=== PATIENT | female | born 1960 | race Caucasian/White ===

== ENCOUNTER 2017-03-07 06:20 | Inpatient (IN) | payer BC ==
--- NOTE | ~2017-03-07 | EGD ---
EGD REPORT [facility] [address] 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 Estimated blood loss: None. Procedure: Pre-Anesthesia Assessment: - After reviewing the risks and benefits, the patient was deemed in satisfactory condition to undergo the procedure. - Prior to the procedure, a History and Physical was performed, and patient medications and allergies were reviewed. The patient's tolerance of previous anesthesia was also reviewed. The risks and benefits of the procedure and the sedation options and risks were discussed with the patient. All questions were answered, and informed consent was obtained. Prior Anticoagulants: The patient has taken IV heparin which was discontinued 6 hours prior to procedure. ASA Grade Assessment: IV - A patient with severe systemic disease that is a constant threat to life. After reviewing the risks and benefits, the patient was deemed in satisfactory condition to undergo the procedure. After obtaining informed consent, the endoscope was passed under direct vision. Throughout the procedure, the patient's blood pressure, pulse, and oxygen saturations were monitored continuously. The GIF [id number] was introduced through the mouth, and advanced to the third part of duodenum. The upper GI endoscopy was accomplished without difficulty. The patient tolerated the procedure well. Findings: A benign-appearing, intrinsic moderate (circumferential scarring or stenosis; an endoscope may pass) stenosis was found 25 cm from the incisors and was traversed. 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 A TTS dilator was passed through the scope. Dilation with an 18-19-20 mm balloon (to a maximum balloon size of 20 mm) dilator was performed. Estimated blood loss: EGD REPORT [address] [place]. [address] NAME: CATALINA CUENCA : [birth year] STATUS : ADM IN [facility]#: [id number] AGE: 57 ADM/REG DATE : 03/07/17 MR#: [id number] REPORT SERV DATE: 03/09/17 DICTATED BY: UGO DENNIS DATE: 03/09/17 REPORT STATUS : Draft TRANSCRIBED BY: [employer] DATE: 03/09/17 none. There was no evidence of injury after dilation. Savary-Winston Grade II (multiple lesions and folds, noncircumferential, with or without confluence) esophagitis with no bleeding was found. The Z-line was irregular. Biopsies were taken with a cold forceps for histology. Estimated blood loss: none. Diffuse moderate inflammation characterized by erythema and granularity was found in the gastric antrum. Biopsies were taken with a cold forceps for histology. Estimated blood loss: none. The gastroesophageal junction (on retroflexion) was normal. The examined duodenum was normal. Impression: - Benign-appearing esophageal stricture. Dilated to 20 mm. - Savary-Winston Grade II reflux esophagitis. - Z-line irregular,. Biopsied. - Gastritis. Biopsied. - Normal gastroesophageal junction. - Normal examined duodenum. Biopsied. - History of surgery for TEF/EA. Recommendation: - [facility] patient [facility] for [facility] care. - Soft diet today. - Continue PPI therapy. - Can resume IV heparin. - Would plan repeat endoscopic examination and dilation in 2-3 months after recover from open heart surgery. Can also do an elective screening colonoscopy at that time. Procedure Code(s): --- Professional --- 40162, Esophagogastroduodenoscopy, flexible, transoral; with transendoscopic balloon dilation of esophagus (less than 30 mm diameter) 95052, Esophagogastroduodenoscopy, flexible, transoral; with biopsy, single or multiple Diagnosis Code(s): --- Professional --- K22.2, Esophageal obstruction K21.0, Gastro-esophageal reflux disease with esophagitis K22.8, Other specified diseases of esophagus K29.70, Gastritis, unspecified, without bleeding R13.10, Dysphagia, unspecified R12, Heartburn CPT copyright 2013 [employer]. All rights reserved. The codes documented in this report are preliminary and upon bank manager review may EGD REPORT [facility] [address] [address] NAME: CATALINA CUENCA : [birth year] STATUS : ADM IN [facility]#: [id number] AGE: 57 ADM/REG DATE : 03/07/17 MR#: [id number] REPORT SERV DATE: 03/09/17 DICTATED BY: UGO DENNIS DATE: 03/09/17 REPORT STATUS : Draft TRANSCRIBED BY: [employer] DATE: 03/09/17 be revised to meet current compliance requirements. UGO DENNIS MD 03/09/2017 8:02 AM This report has been signed electronically. Number of Addenda: 0 Note Initiated On: 03/09/2017 6:51 AM Scope Withdrawal Time 0 hours 0 minutes 0 seconds [address] [address]
--- NOTE | ~2017-03-07 | DS ---
Discharge Summary [facility] [address] [place]. [address] NAME: SHANTAL VEGA : 62 STATUS : DIS IN PAT#: [id number] AGE: 57 ADM/REG DATE : 03/07/17 MR#: [id number] REPORT SERV DATE: 03/25/17 DICTATED BY: JOI ZAMORA DATE: 03/24/17 REPORT STATUS : Draft TRANSCRIBED BY: NARCISA DATE: 03/24/17 Data Collection from hospitalization DISCHARGE DIAGNOSES: 1. Aortic valve stenosis. 2. Coronary artery disease. 3. Hyperlipidemia. 4. Diabetes mellitus. 5. Sleep apnea. 6. Scoliosis. 7. Gastroesophageal reflux disease. 8. Psoriasis. 9. Tobacco use. CONSULTATIONS: Dr. Joon Schulz, Dr. Declan Barnett. PROCEDURES PERFORMED: 1. Upper GI endoscopy, 03/09/2017. 2. Left heart catheterization, right heart catheterization, selective coronary angiography, left ventriculography, thoracic aortography, 03/07/2017. 3. Urgent coronary artery bypass grafting x3 with MCNAIR to the LAD, reverse saphenous vein graft placed to the first diagonal, reverse saphenous vein graft placed to the second diagonal, aortic valve replacement using a 25 mm pericardial valve (Trifecta), endoscopic vein harvest of the saphenous vein from the right thigh, 03/10/2017. 4. CT scan of the chest without contrast, 03/08/2017. PATHOLOGY: Aortic valve tissue was marked thickening and extensive calcifications, inflammatory vegetations not present. Gastric antrum biopsy-minimal chronic gastritis, negative for intestinal metaplasia or dysplasia. Negative for H pylori by routine H and E stain. 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 DISCHARGE MEDICATIONS: Cordarone 200 mg twice a day, vitamin C 1000 mg twice a day, aspirin 81 mg daily, Lipitor 40 mg at bedtime, stool softener 240 mg daily, Lopressor 12.5 mg twice a day, Aleve 220 mg daily as needed, Senokot two tablets twice a day, Coumadin 2.5 mg daily, Orazinc 220 mg daily. CONDITION AT DISCHARGE: Stable. DISPOSITION: The patient was discharged home on an 1800-calorie cardiac/diabetic diet with activities as instructed. She would follow up with Paulino Sandoval, 05/18/2017. She would follow up with Dr. Joi Zamora, 04/06/2017 and 03/17/2013. HOSPITAL COURSE: This is a 57-year-old smoker, who has borderline diabetes with recent progressive dyspnea on exertion and chest tightness. She had reported breathlessness, walking up and down stairs or even ambulating on level ground at 25-50 feet. She has a strong family history of coronary artery disease in her father, mother, and brother. She denied any symptoms of paroxysmal nocturnal dyspnea, syncope or near syncope, overt chest Discharge [id number] [place]. [address] NAME: SHANTAL VEGA : 62 STATUS : DIS IN PAT#: [id number] AGE: 57 ADM/REG DATE : 03/07/17 MR#: [id number] REPORT SERV DATE: 03/25/17 DICTATED BY: JOI ZAMORA DATE: 03/24/17 REPORT STATUS : Draft TRANSCRIBED BY: NARCISA DATE: 03/24/17 pain, nausea, or vomiting. She denied any night sweats, fevers, or chills. When she has chest discomfort, she does not have any radiation of the discomfort. She knows that she has had a murmur for least 10 years. She recently saw her primary care provider and had an echocardiogram, which revealed severe aortic stenosis, severe aortic regurgitation with peak aortic valve gradient of 68 mmHg. There was also noted mild mitral regurgitation and trace tricuspid regurgitation with preserved left ventricular function and mild dilation of the ascending aorta. It was felt that she would need to undergo a coronary arteriogram. She was admitted to the hospital at this time for further evaluation and treatment. Upon admission, she was taken to the cardiac director labor standards, where she underwent the above- mentioned procedure. She tolerated this well and there were no complications. Following this, she was seen by Dr. Joon Schulz. The arteriogram demonstrated a proximal left anterior descending coronary artery stenosis of 90% and had an EKG that showed sinus rhythm with ST-T wave changes in the anterolateral leads. It was felt that the patient would need to undergo a coronary artery bypass grafting during this admission. The following day, she was seen by Dr. Declan Barnett. He had been asked to see the patient for evaluation of reflux and dysphagia. 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 She was not sure if she had associated esophageal atresia or not, but she has had chronic esophageal symptoms since then. She has had reflux for which she said had not been too troublesome lately. She had taken Zantac, but only intermittently. She had also had an esophageal stricture, which required multiple dilations in the past. She said that the last of this was several years ago. Recently, she had been having some chest pain. There were plans for a coronary artery bypass graft procedure and aortic valve replacement to be performed. She reported increased dysphagia over the past couple of months. This would occur with both liquid and solid foods. She had not lost any weight. She denied any significant heartburn. She had been eating a solid diet here without too much difficulty. A CT scan was performed without contrast and showed some dilation of the esophagus with a little bit of fluid and some gallbladder sludge. IV Protonix was started. It was felt that she would probably benefit from an endoscopic examination and dilation. On the , the patient was taken to the endoscopic suite by Dr. Declan Barnett and she underwent upper GI endoscopy. The patient had a benign-appearing esophageal stricture, dilated to 20 mm. There was a Savary-Winston grade 2 reflux esophagitis. There was an irregular Z-line, which was biopsied. There was gastritis, which was biopsied. There was a normal gastroesophageal junction. There was a normal examined duodenum that was biopsied. Proton pump inhibitor therapy was continued. We would resume IV heparin. Plans are being made to proceed with coronary artery bypass grafting. On 03/10/2017, she was taken to the operating room by Dr. Joon Schulz, where she underwent the above-mentioned procedure. She tolerated this well and there were no complications. On postop day one, she had been extubated. She was alert. Routine postop care continued. Chest tubes were removed. She said she felt tired. She was up sitting in a chair. On the , she had no new complaints. She was in a normal sinus rhythm. She was going to be transferred to a telemetry bed. Over the next couple of days, she continued to progress. Her incisions looked okay. She had no edema. She was moving well. Discharge planning was performed. Warfarin was started. Cardiovascular status was stable. Lovenox was given for DVT prophylaxis. On 03/14/2017, her lungs were clear. She had no edema. She was ambulating in the halls without difficulty. Discharge instructions were given. Due to her Discharge Summary [address] [place]. [address] NAME: SHANTAL VEGA : 62 STATUS : DIS IN PAT#: [id number] AGE: 57 ADM/REG DATE : 03/07/17 MR#: [id number] REPORT SERV DATE: 03/25/17 DICTATED BY: JOI ZAMORA. DATE: 03/24/17 REPORT STATUS : Draft TRANSCRIBED BY: NARCISA DATE: 03/24/17 improved and stable condition, she was discharged home with the above-stated instructions. Information collected by: Tiki Peters I submit the above information as my discharge summary. SHERRIE/NARCISA Joi Zamora D.O. / [id number] CC: Sven Escalante Jr., M.D. Alan Shikoh, M.D. James Zellner, M.D.
--- NOTE | ~2017-03-07 | CN ---
Consultation Report [facility] [address] [place]. [address] NAME: SHANTAL VEGA : 62 STATUS : ADM IN PAT#: [id number] AGE: 57 ADM/REG DATE : 03/07/17 MR#: [id number] REPORT SERV DATE: 03/08/17 DICTATED BY: DECLAN BARNETT DATE: 03/08/17 REPORT STATUS : Draft TRANSCRIBED BY: [employer] DATE: 03/08/17 CONSULTATION DATE OF CONSULTATION: HISTORY OF PRESENT ILLNESS: This is a 57-year-old woman whom I am asked to see as an unattached GI consult for evaluation of reflux and dysphagia. 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 She is not sure if she had associated esophageal atresia or not, but she has had chronic esophageal symptoms since then. She has had reflux for which she says has not been too troublesome lately. She has taken Zantac, but only intermittently. She has also had an esophageal stricture, which required multiple dilations in the past at [place] by Dr. Alonso. She states the last of this was several years ago. More recently, she has been having some chest pain. She has been evaluated by Dr. Gan. She had cardiac catheterization yesterday with a 90% proximal LAD and severe aortic stenosis. There are plans for CABG and aortic valve replacement tomorrow. She reports increased dysphagia over the last couple of months. This is occurring both with liquids and solid food. She has not lost any weight. She denies any significant heartburn. She has been eating solid diet here without too much difficulty. A CT was done without IV or oral contrast. It showed some dilation of the esophagus with a little bit of fluid. PAST MEDICAL HISTORY: 1. 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 2. History of esophageal stricture requiring multiple dilations in the past. 3. GERD. 4. Continued tobacco dependence. 5. Aortic stenosis. 6. Coronary artery disease with a 90% proximal LAD. 7. Obstructive sleep apnea, on CPAP. 8. Psoriasis. PAST SURGICAL HISTORY: Status post hysterectomy, status post laparoscopy, and lysis of adhesions for small bowel obstruction, status post appendectomy, and status post left eye surgery. MEDICATIONS: (on admission) aspirin 81 mg, Lipitor, Colace, and Aleve. ALLERGIES: NO KNOWN DRUG ALLERGIES. FAMILY HISTORY: Her father had coronary artery disease and is . Her mother and brother Consultation Report [id number] [place]. [address] NAME: SHANTAL VEGA : 62 STATUS : ADM IN PAT#: [id number] AGE: 57 ADM/REG DATE : 03/07/17 MR#: [id number] REPORT SERV DATE: 03/08/17 DICTATED BY: DECLAN BARNETT DATE: 03/08/17 REPORT STATUS : Draft TRANSCRIBED BY: MODL DATE: 03/08/17 also had coronary artery disease. 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 She has a 18-gusy-aatx smoking history. She does not abuse alcohol. REVIEW OF SYSTEMS: Otherwise unremarkable for constitutional, endocrine, neurologic, psychiatric, ocular, ENT, pulmonary, cardiovascular, GI, , or rheumatologic symptoms except for as noted above. PHYSICAL EXAMINATION: GENERAL: She is well nourished, in no acute distress. VITAL SIGNS: Afebrile. SKIN: Warm and dry. NODES: No adenopathy. LUNGS: Clear. CARDIOVASCULAR: Regular rate and rhythm with harsh systolic murmur at the base consistent with aortic stenosis. ABDOMEN: Soft, nontender. EXTREMITIES: No edema. LABORATORY DATA: Anticoagulated PTT 87.5 on heparin. MRSA screen positive. Noncontrast CT scan shows somewhat distended esophagus with fluid and some gallbladder sludge. Sodium 143, potassium 4.1, BUN 13, creatinine 0.7. White count normal and hemoglobin 13.4. IMPRESSION: 1. Gastroesophageal reflux disease. 2. 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 RECOMMENDATIONS: 1. We will go ahead and put on Protonix 40 mg daily. 2. She could probably benefit from endoscopic examination and dilation tomorrow. I think it would be minimal risk and sedate her for about 15 minutes for this exam spider aortic stenosis. There will be very low risk of any sort of vagal issues associated with this procedure. Would need approval from Cardiology. Would need to hold the IV heparin for six hours before the procedure. We will discuss with Dr. Gan. 3. Cardiology does not feel that this is feasible, would keep on proton pump inhibitor. In the aravind and postoperative periods and not advance beyond a soft diet and consider elective dilation in a few weeks when she has recovered from surgery. Consultation Report [address] [address] [place]. [address] NAME: SHANTAL VEGA : 62 STATUS : ADM IN PAT#: [id number] AGE: 57 ADM/REG DATE : 03/07/17 MR#: [id number] REPORT SERV DATE: 03/08/17 DICTATED BY: DECLAN BARNETT DATE: 03/08/17 REPORT STATUS : Draft TRANSCRIBED BY: [employer] DATE: 03/08/17 /NARCISA Declan Barnett M.D. / [id number] CC: Joi Zamora D.O.
--- NOTE | ~2017-03-07 | OP ---
[facility] Of [facility] [address] [place]. [address] NAME: SHANTAL VEGA : 62 STATUS : ADM IN PAT#: [id number] AGE: 57 ADM/REG DATE : 03/07/17 MR#: [id number] REPORT SERV DATE: 03/10/17 DICTATED BY: ERROL SCHULZ DATE: 03/10/17 REPORT STATUS : Draft TRANSCRIBED BY: MODKala DATE: 03/10/17 DATE OF PROCEDURE: 03/10/2017 PREOPERATIVE DIAGNOSES: 1. Aortic valve stenosis with insufficiency. 2. Coronary artery disease. 3. Type 2 tnr-nrrfgtw-iifueqjkp diabetes mellitus. 4. Tobacco abuse. 5. Hypertension. 6. Hypercholesterolemia. 7. Gastroesophageal reflux disease. 8. History of bicuspid aortic valve. POSTOPERATIVE DIAGNOSES: 1. Aortic valve stenosis with insufficiency. 2. Coronary artery disease. 3. Type 2 anx-xkvsifl-ezgbcirbc diabetes mellitus. 4. Tobacco abuse. 5. Hypertension. 6. Hypercholesterolemia. 7. Gastroesophageal reflux disease. 8. History of bicuspid aortic valve. PROCEDURES PERFORMED: 1. Urgent coronary artery bypass grafting x3, left internal mammary artery placed to left anterior descending, reverse saphenous vein graft placed to the first diagonal, reverse saphenous vein graft placed to the second diagonal. 2. Aortic valve replacement using a 25 mm pericardial valve (Trifecta). 3. Endoscopic vein harvest of saphenous vein from the right thigh. SURGEON: Errol Schulz M.D. ASSISTANTS: Phylicia Vaz and Williams Christy. ANESTHESIA: General with Dr. Schroeder. NUT SHELLER MACHINE OPERATOR: Colt Valdovinos M.D. PRIMARY CARE: Hardik Mckenzie M.D. INDICATIONS: This is a 57-year-old female with a history of aortic stenosis. She was seen recently by Dr. Zamora. The patient has been having increasing episodes of dyspnea with exertion and shortness of breath. He obtained another echocardiogram that demonstrated severe aortic valve stenosis with bicuspid-appearing aortic valve. Peak gradient across the valve was 58 mmHg. The patient underwent cardiac catheterization, which demonstrated significant complex LAD disease and had a trifurcation branching point. We were asked to [facility] [address] [place]. [address] NAME: SHANTAL VEGA : 62 STATUS : ADM IN PAT#: [id number] AGE: 57 ADM/REG DATE : 03/07/17 MR#: [id number] REPORT SERV DATE: 03/10/17 DICTATED BY: ERROL SCHULZ DATE: 03/10/17 REPORT STATUS : Draft TRANSCRIBED BY: NARCISA DATE: 03/10/17 see the patient for possible urgent coronary bypass grafting and aortic valve replacement given the patient's complex coronary artery disease and severe aortic valve stenosis. She has a long history of smoking and has noninsulin requiring diabetes mellitus. We discussed possible aortic valve replacement and coronary bypass grafting with the patient and her family, and after discussing the operation, its indication, and risks, they wished to proceed. Preoperative predicted risk of mortality by STS score was 2% and predicted risk of morbidity mortality was 13.7%. After discussing the operation, its indications, and risks, they wished to proceed. Preoperative carotid ultrasound studies demonstrated no severe stenosis bilaterally. FINDINGS: 1. Cross-clamp 122 minutes, total pump time 140 minutes. 2. The LAD was a 1.5 mm and mildly diseased vessel. A 2 mm MCNAIR was anastomosed to it with good runoff. 3. The first diagonal was 1.75 mm and mildly diseased. A 3 mm RSVG was anastomosed to it with good runoff. 4. The second diagonal was 1.5 mm and mildly diseased. A 3 mm RSVG was anastomosed to it with good runoff. 5. The vein quality was good and all the grafts had good Doppler signal at the end of the case. 6. The aortic valve with the bicuspid valve was markedly thickened, sclerotic, and calcified. The commissure post between the right noncoronary cusps was not formed. The valve had a fishmouth appearance on opening. The valve was heavily calcified. 7. We implanted a 25-mm pericardial valve (Trifecta) without difficulty. Sixteen Cor- Knots were utilized to secure the valve in place. 8. Coronary anatomy was normal. There was mild dilation of the ascending aorta and aortic root, but less than 4 cm in diameter. 9. There was severe left ventricular hypertrophy. 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 Pathology specimens include aortic valve leaflets. DESCRIPTION OF PROCEDURE: The patient was brought to the operating suite where general anesthesia was induced and airway secured with an endotracheal tube. Lines were secured by Anesthesia and Sosa catheter was placed. The patient's chest, abdomen, groin, and legs were prepped with Hibiclens and ChloraPrep and draped with Ioban sterile sheath. Saphenous vein was harvested from the right thigh using endoscopic technique. Briefly, the vein was cut directly down upon through 2 cm incision placed at the medial aspect of the right knee. Then, using VasoView trocars, the vessel was dissected from the surrounding subcutaneous tissue and fat. The side branches were identified, ligated, divided with cautery. Once adequate length of vein had been dissected, a counter incision was made in the groin where the vein was ligated, divided, and brought out through the knee incision. The vein quality was good. The leg was made hemostatic and closed in layers of absorbable suture and skin closed in a subcuticular fashion. Then, a midline sternal incision was made with sternal saw. The left hemithorax was elevated and the endothoracic fascia was incised. The side branch of the AKUA were clipped and divided. Once the AKUA was completely dissected, the patient was anticoagulated with Record Of Operation [facility] [address] [place]. [address] NAME: SHANTAL VEGA : 62 STATUS : ADM IN [facility]#: [id number] AGE: 57 ADM/REG DATE : 03/07/17 MR#: [id number] REPORT SERV DATE: 03/10/17 DICTATED BY: ERROL SCHULZ DATE: 03/10/17 REPORT STATUS : Draft TRANSCRIBED BY: MODL DATE: 03/10/17 heparin and chest tube placed in the left pleural cavity. The AKUA was clipped and divided distally. There was good flow through the AKUA and its pedicle was infiltrated with papaverine. We then measured the ascending aortic diameter just above the sinotubular junction and it measured just under 4 cm at its widest point. Then, cannulation pursestring sutures were placed. Cannulation was carried out in a routine manner. Custodiol solution was used for antegrade cardioplegia only. Then, a heart support was placed. The aorta was crossclamped and initial dose of cold blood cardioplegia solution was given in a combination of antegrade and hand-held direct coronary infusion of Custodiol. A total of 2 liters was utilized. A heart support was then placed and secured. An LV vent was placed through the right superior pulmonary vein into the left ventricle and secured. Following the first dose of cardioplegia, heart was positioned for the first diagonal graft. Arteriotomy was made and the vein graft was trimmed and anastomosed to it with 7-0 Prolene. This vein graft was then measured to the ascending aorta where it was divided. We then positioned the heart for the second diagonal graft. Another arteriotomy was made and the vein graft was trimmed and anastomosed to it with 7-0 Prolene. This vein graft was then measured to the left side of the ascending aorta where it was divided. Then, we positioned the heart for the LAD graft. Arteriotomy was made in the mid LAD. The AKUA was brought out of the left chest through a notch in the pericardium over the pulmonary artery. The AKUA was opened and anastomosed to the LAD with running suture of 8-0 Prolene. The endothoracic fascia was tacked to epicardium. We then turned our attention towards the aortic valve. A zqvhjw-qwnir-uakv aortotomy incision was enlarged and then the aortic valve was examined. As described above, it was bicuspid aortic valve with heavy calcification and sclerosis. The valve leaflets were excised and the annulus debrided of all calcific material. The ascending aorta and left ventricle were then irrigated copiously with iced saline to remove any particulate matter. A 25 mm pericardial valve size was chosen and placed in the ascending aorta. The commissure post between the right and noncoronary sinuses was marked. The other two commissures were present. Coronary anatomy was normal. Next, interrupted pledgeted sutures of 2-0 Tycron were placed circumferentially about the aortic valve annulus with the pledgets on the ventricular side. The sutures were then passed through the sewing cuff of the aortic valve prosthesis. This was lowered into position and each sutures individually secured and divided using a Cor-Knot device. The valve appeared to be well seated. There was no coronary obstruction. Warming was begun. The aortotomy was closed in a two-layer fashion with running pledgeted suture of 5-0 Prolene. The patient was placed in Trendelenburg. The proximal ends of the two vein grafts were anastomosed to 4.5 mm punch aortotomy with 6-0 Prolene. Then, after de-airing of the Record Of Operation [facility] [address] [place]. [address] NAME: SHANTAL VEGA : 62 STATUS : ADM IN PAT#: [id number] AGE: 57 ADM/REG DATE : 03/07/17 MR#: [id number] REPORT SERV DATE: 03/10/17 DICTATED BY: ERROL SCHULZ DATE: 03/10/17 REPORT STATUS : Draft TRANSCRIBED BY: NARCISA DATE: 03/10/17 ascending aorta of the left ventricle, the aortic cross-clamp was removed. The distal and proximal anastomoses were inspected and made hemostatic. Doppler demonstrated good flow through the grafts. The heart resumed a junctional-type rhythm and was paced in AV sequential fashion at a rate of 80. Ventilations were begun, and when the heart demonstrated good contractility, it was allowed to fill and eject. When deairing was completed, the patient was taken out of Trendelenburg. The LV vent was removed and these pursestring sutures tied. The ascending aortic vent was likewise removed and these pursestring sutures tied and reinforced. The patient was then weaned from cardiopulmonary bypass with minimal inotropic support. The venous cannulas were removed and these pursestring sutures tied. The chest was irrigated copiously with saline and meticulous hemostasis was obtained. Hemasorb was placed along the cut edge of the sternum. Once hemostasis was assured, the pericardium was draped over the anterior surface of the heart and tacked into position. Doppler demonstrated good flow through the grafts following protamine administration. Then, chest tubes were placed and the sternum reapproximated with eight sternal wires. The clavipectoral fascia and linea alba closed with #1 Stratafix. The subcutaneous tissue was closed with Stratafix and skin closed in subcuticular fashion. The patient tolerated the procedure well without any complications. Sponge and needle counts were correct. DISPOSITION: The patient was left intubated, sedated, and transported to the intensive care unit in stable condition. TIMA/NARCISA Errol Schulz M.D. / [id number] CC: Sven Escalante Jr., M.D.
--- NOTE | ~2017-03-07 | OP ---
Record Of Operation [facility] [address] [place]. [address] NAME: SHANTAL VEGA : 62 STATUS : ADM IN PAT#: [id number] AGE: 57 ADM/REG DATE : 03/07/17 MR#: [id number] REPORT SERV DATE: 03/10/17 DICTATED BY: ZIA ZAMORA. DATE: 03/09/17 REPORT STATUS : Draft TRANSCRIBED BY: NARCISA DATE: 03/09/17 DATE OF PROCEDURE: 03/07/2017 PROCEDURE DESCRIPTION: 1. Left heart catheterization. 2. Right heart catheterization. 3. Selective coronary angiography. 4. Left ventriculography. 5. Thoracic aortography. INDICATION: 1. Severe aortic valvular disease suggested by echocardiogram. 2. [place] Heart Association class 3. 3. Coronary artery disease. PRECATHETERIZATION LABS: Include hematocrit of 41.8%, creatinine 0.75, GFR 89, potassium 3.9, hemoglobin 14.3, and platelets 254,000. FUR FLOOR WORKER: Zia Zamora D.O. COMMISSIONED SECURITY OFFICER: Phylicia Leigh. DIGITAL MEDIA PRODUCER: Moon Melgar. SCRUB: Lillian Martin. FLUORO: Amanda Rojo. TECHNIQUE: Right Rhianna (artery) and left femoral vein for the [place]-Glory catheter placed. COMPLICATIONS: The patient received a total of Versed IV 2.5 mg and fentanyl 125 mg and aliquots delivered over the course of the study which lasted at least an hour. Unfortunately, she developed an apneic episode after the left femoral vein was cannulated and sheath deployed. This required Ambu bag ventilation, and she did recover well. She maintained saturations, arterial pressure and heart rhythm/rate. No reversal agents were given for this episode. 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 FINDINGS: Hemodynamics: The patient's body surface area is 1.69 sq m. The central aortic O2 saturation was 92%, PaO2 saturation 65%, RAO2 saturation 59%. Hemoglobin was 14.3 g/dL. The Amagon catheter was used to determine the transaortic valve gradient. The aortic pressure was 127/68 with a left ventricular measurement of 211/14. The patient is in normal sinus rhythm with a stable heart rate. The mean gradient recorded across the aortic valve Record Of [facility] [address] [place]. [address] NAME: SHANTAL VEGA : 62 STATUS : ADM IN PAT#: [id number] AGE: 57 ADM/REG DATE : 03/07/17 MR#: [id number] REPORT SERV DATE: 03/10/17 DICTATED BY: ZIA ZAMORA DATE: 03/09/17 REPORT STATUS : Draft TRANSCRIBED BY: NARCISA DATE: 03/09/17 was 52 mmHg with a peak to peak gradient of approximately 75 mmHg. The Michelle cardiac output was determined at 2.8 L/minute. Cardiac index 1.7 L/minute per sq m. The calculated aortic valve area was 0.36 sq m with an indexed aortic valve area of 0.21 sq cm/ sq m utilizing the Michelle derived cardiac output. SVR was recorded at 3280. With the Amagon catheter, the left ventricular systolic pressure was 206 and the central aortic simultaneous pressure was 151/87. The peak to peak gradient was 52 mmHg. The mean RA pressure was 11 mmHg, the RV pressure was 57/9 with a mean PCWP of 27 mmHg and the PA pressure of 47/29 with a mean PA pressure of 37. Fluoroscopy revealed dense calcification of the aortic valve and severe coronary artery calcifications. Selective coronary arteriography: The patient has a right dominant system. The left main was large with mild irregularity and bifurcated into an LAD and circumflex. The LAD was severely/critically diseased with a proximal 90%-99% lesion which involved the takeoff of the medium caliber diagonal vessel. The more distal diagonal was small to medium caliber and also the ostial was 50-70% stenosis. The circumflex was large, nondominant with mild irregularities. The right coronary artery was very large dominant with mild irregularities. Left ventriculography: A single ventriculogram was obtained in the 30 degree AMADOR view demonstrating dilated left ventricular cavity with an ejection fraction of approximately 50%. The anterolateral segments were moderately hypokinetic. Wall motion was best preserved at the posterior basal segment. The diaphragmatic segments were mildly hypocontractile. Perhaps 1+ mitral regurgitation was observed. Thoracic aortography: Single aortogram was performed with the pigtail catheter at the level of the sinotubular junction in the WILLIAM view. Again noted was a dense calcification along the aortic valve which was otherwise trileaflet. The ascending aorta was mildly dilated and the remainder of the arch and the takeoff of the great vessels appeared grossly unremarkable. No evidence of dissection. CONCLUSION: 1. Severe/critical aortic valvular stenosis with moderate aortic valvular regurgitation. 2. Critical coronary artery disease involving the LAD and diagonal as noted above. 3. Ischemic cardiomyopathy with an ejection fraction of 50% and wall motion abnormalities as described above. 4. Moderate pulmonary hypertension, a post-capillary etiology. The left ventricular end- diastolic pressure was approximately 25 mmHg. Record Of Operation [facility] [address] [facility] [place]. [address] NAME: SHANTAL VEGA : 62 STATUS : ADM IN [facility]#: [id number] AGE: 57 ADM/REG DATE : 03/07/17 MR#: [id number] REPORT SERV DATE: 03/10/17 DICTATED BY: ZIA ZAMORA. DATE: 03/09/17 REPORT STATUS : Draft TRANSCRIBED BY: MODKala DATE: 03/09/17 5. Mild mitral regurgitation. 6. Mildly dilated ascending aorta. PLAN: The patient will be referred to Dr. Schulz for consideration of aortic valve replacement and CABG. The patient will be admitted to the hospital and I spoke with Paulino Sandoval directed by telephone and he will be seeing the patient for initial assessment. SAT/CINDYL Zia Zamora D.O. / [id number] CC: Sven Escalante Jr., M.D. James Zellner, M.D.
--- NOTE | ~2017-03-07 | CN ---
Consultation Report [facility] [address] [place]. [address] NAME: SHANTAL VEGA : 62 STATUS : ADM IN PAT#: [id number] AGE: 57 ADM/REG DATE : 03/07/17 MR#: [id number] REPORT SERV DATE: 03/07/17 DICTATED BY: ERROL SCHULZ DATE: 03/07/17 REPORT STATUS : Draft TRANSCRIBED BY: MODL DATE: 03/07/17 CONSULTATION NOTE DATE OF CONSULTATION: 03/07/2017 REASON FOR CONSULTATION: Single-vessel coronary artery disease, and severe aortic stenosis, consideration for coronary artery bypass grafting and aortic valve replacement. HISTORY OF PRESENT ILLNESS: This is a 57-year-old female, smoker, borderline diabetic, with recent progressive dyspnea on exertion and chest tightness. She reports breathlessness when walking up and down stairs or even ambulating on level ground at 25-50 feet. She has a strong family history of coronary artery disease in father, mother, and brother. She denies any symptoms of paroxysmal nocturnal dyspnea, syncope or near syncope, overt chest pain, or nausea or vomiting. She denies any night sweats, fevers, or chills. When she has chest discomfort, she does not have any radiation of the discomfort. She notes that she has had a murmur for at least 10 years. She recently saw her primary care provider, DL Vasquez, and had an echocardiogram, read by Dr. Vivek Jerome that showed severe aortic stenosis, severe aortic regurgitation with peak aortic valve gradient 68 mmHg. There was also noted mild mitral regurgitation and trace tricuspid regurgitation with preserved left ventricular function and mild dilation of the ascending aorta. She was referred to Cardiology for further evaluation and today underwent arteriogram that demonstrated proximal left anterior descending coronary artery stenosis of 90% and had EKG that showed sinus rhythm with ST-T wave changes in the anterolateral leads. We were asked to see for possible coronary bypass grafting and aortic valve replacement at this admission, and this was discussed with the patient and her sister in the room today. PRIOR MEDICAL HISTORY: 1. Borderline diabetes mellitus type 2. 2. Obstructive sleep apnea, with use of CPAP. 3. Gastroesophageal reflux disease. 4. Arthritis. 5. Psoriasis. 6. Scoliosis. 7. Esophageal stricture status post previous dilations. 8. Tracheoesophageal fistula. 9. Tobacco abuse, 40 pack years. PRIOR SURGICAL HISTORY: Significant for left eye surgery x2, previous hysterectomy, appendectomy, multiple esophageal dilatations, and previous exploratory laparotomy with lysis of adhesions for bowel obstruction. ALLERGIES: NONE KNOWN. MEDICATIONS: Medications taken at home include aspirin 81 mg daily, atorvastatin 20 mg at Consultation Report [facility] [address] [place]. [address] NAME: SHANTAL VEGA : 62 STATUS : ADM IN [facility]#: [id number] AGE: 57 ADM/REG DATE : 03/07/17 MR#: [id number] REPORT SERV DATE: 03/07/17 DICTATED BY: ERROL SCHULZ DATE: 03/07/17 REPORT STATUS : Draft TRANSCRIBED BY: NARCISA DATE: 03/07/17 bedtime, docusate sodium 240 mg p.o. daily, and naproxen 220 mg p.o. daily. FAMILY HISTORY: Father is . Mother, brother, and sister with hypertension and heart disease. SOCIAL HISTORY: She is , is a smoker of a pack per day for 40 years off and on. She has two adult children. She is employed as an [employer]. REVIEW OF SYSTEMS: GENERAL: Negative for any recent weight change, fevers, chills, or night sweats. 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 RESPIRATORY: Negative. She does have seasonal allergies. CV: Positive for heart murmur, chest discomfort, breathlessness on exertion, negative for paroxysmal nocturnal dyspnea, negative for syncope or near syncope, negative for prior heart attack, she was told she had mitral valve prolapse in the past. GI: As above. Negative for bleeding at stool, diarrhea, or constipation. : Positive for incontinence following hysterectomy. Negative for kidney problems. MUSCULOSKELETAL: Positive for scoliosis. HEM/ONC: Negative for cancer. Positive for easy bruising. NEUROLOGIC: Negative for stroke or TIA symptoms. Denies any tremors or seizures. PHYSICAL EXAMINATION: GENERAL: She is a pleasant female who appears much older than her chronological age. VITAL SIGNS: Her height is 157.48, weight 64.58 kg. Blood pressure is 148/85, temperature 97.6, pulse 79, respirations 12, saturation 95%. HEENT: Normocephalic, atraumatic, with graying hair. Pupils are equal, round, reactive to light and accommodation, sclerae clear, conjunctivae pink. Oral and buccal mucosa are pink and moist, no lesions or masses, Mallampati class 2 airway. She has missing all upper teeth and has lower teeth in good condition. NECK: Supple. No restricted range of motion. No carotid bruits. No jugular venous distention. CHEST: Clear to auscultation with no use of accessory muscles. No chest wall tenderness. BREASTS: Not examined. CV: Regular rate and rhythm with systolic murmur easily heard across the chest. She has palpable and symmetric central peripheral pulses, no clubbing, cyanosis, or edema. ABDOMEN: Soft, obese, nontender with normoactive bowel sounds. No hepatosplenomegaly. /RECTAL: Declined. MUSCULOSKELETAL: No asymmetry. NEUROLOGIC: She is alert and oriented to day, date, place, and situation. Speech is clear, fluent, and there are no focal deficits. No tremors. SKIN, HAIR, AND NAILS: No lesions, masses, or rashes. DATA: Her coronary arteriogram which I reviewed today showing significant proximal left main Consultation Report [facility] [place] [id number] [facility] [place]. [address] NAME: SHANTAL VEGA : 62 STATUS : ADM IN [facility]#: [id number] AGE: 57 ADM/REG DATE : 03/07/17 MR#: [id number] REPORT SERV DATE: 03/07/17 DICTATED BY: ERROL SCHULZ DATE: 03/07/17 REPORT STATUS : Draft TRANSCRIBED BY: NARCISA DATE: 03/07/17 stenosis, apical and inferior hypokinesis and diminished left ventricular function. Her EKG showing normal sinus rhythm. Current labs; sodium is 145, potassium 3.9, chloride 109, CO2 of 29, BUN 23, creatinine 0.75. CBC unremarkable. Lipid profile is okay. Carotid ultrasound shows no flow-limiting disease. IMPRESSION: Coronary artery disease and severe aortic stenosis in a 57-year-old female. We talked about possible coronary artery bypass grafting and aortic valve replacement. We talked about the surgery, usual perioperative course, indications, benefits, and serious risks. These include, but are not limited to, things such as bleeding, need for blood or blood product transfusion and their attendant risks, infection including deep sternal infection, mediastinitis, damage to the kidneys including kidney failure and dialysis, damage to the liver or the lungs, heart attack, stroke, abnormal heart rhythm, and even . The patient indicates her understanding, and is most concerned about the potential to be off work for well over a month. She is concerned that she will lose her job and that she does not know how she will make it financially. We talked about this and also the likelihood of progression of her symptoms with her severe aortic stenosis. She is considering surgery and likely we will proceed with aortic valve replacement and coronary artery bypass grafting at this admission. We used the [employer] database for risk prediction with estimated mortality risk of 2.046%, morbidity or mortality at 13.672% and this was shared with the patient and her sister today. We appreciate the opportunity to participate in her care. DICTATED BY: He Florian/NARCISA Errol Schulz M.D. / [id number] CC: Sven Escalante JR,NIDHI SANTOS
[~2017-03-07 06:20] MED LIST: ALEVE220 MG PO; ASAB PO; LIPITOR40 PO; STOOL SOFTEN240 MG PO
[2017-03-07 07:03] LABS: BASOPHILS 0.3 %; BASOPHILS ABSOLUTE 0.02 10/3/uL (0.0-0.16); EOSINOPHILS 2.8 %; EOSINOPHILS ABSOLUTE 0.18 10/3/uL (0.0-0.53); HEMATOCRIT 41.8 % (36.0-48.0); HEMOGLOBIN 14.3 g/dL (12.0-16.0); IMMATURE GRANULOCYTES 0.2 %; IMMATURE GRANULOCYTES ABSOLUTE 0.01 10/3/uL (0.0-0.11); LYMPHOCYTES 29.1 %; MEAN CORPUS HGB CONC 34.2 g/dL (32.0-36.0); MEAN CORPUSCULAR HEMOGLOB 32.6 pg (26.0-34.0); MEAN CORPUSCULAR VOLUME 95.2 fL (80-100); MEAN PLATELET VOLUME 9.8 fL (9.2-13.0); MONOCYTES 8.4 %; MONOCYTES ABSOLUTE 0.55 10/3/uL (0.21-1.20); NEUTROPHILS 59.2 %; NEUTROPHILS ABSOLUTE 3.87 10/3/uL (2.02-8.40); PLATELET COUNT 254 10/3/uL (150-400); RBC DISTRIBUTION WIDTH 12.5 % (12.0-16.0); RED CELL COUNT 4.39 10/6/uL (4.0-5.6); WHITE BLOOD CELLS 6.5 10/3/uL (4.5-10.5)
[2017-03-07 07:05] LABS: MANUAL DIFF NO %
[2017-03-07 07:18] LABS: BUN (BLOOD UREA NITROGEN) 23 MG/DL (6-23); CHLORIDE, SERUM 109 MMOL/L (96-112); CHOL/HDL RATIO(NOT ORDER) 2.4 (0-5); CHOLESTEROL 142 MG/DL (< 200); CO2 (CARBON DIOXIDE) 29 MMOL/L (24-34); CREATININE 0.75 MG/DL (0.55-1.02); GFR AFRICAN AMERICAN 103 ML/MIN (>=60); GFR NON AFRICAN AMERICAN 89 ML/MIN (>=60); GLUCOSE, SERUM 100 MG/DL (60-99); HDL CHOLESTEROL 60 MG/DL (> 49); LDL CHOLESTEROL 65 MG/DL (< 130); NON-HDL CHOLESTEROL 82 MG/DL (< 160); POTASSIUM, SERUM 3.9 MMOL/L (3.5-5.3); SODIUM, SERUM 145 MMOL/L (135-148); TRIGLYCERIDE 89 MG/DL (< 150)
[2017-03-07 21:00] LABS: ASCORBIC ACID (UR NOT ORDER) NEG (NEG); BILIRUBIN, URINE NEGATIVE (NEG); KETONE, URINE NEGATIVE (NEG); LEUKOCYTE ESTERASE(NOT OR NEG (NEG); WBC (NOT ORDERED) (RFLEX) < 1 (0-5)
[2017-03-08 05:03] LABS: BASOPHILS 0.3 %; BASOPHILS ABSOLUTE 0.02 10/3/uL (0.0-0.16); EOSINOPHILS 1.8 %; EOSINOPHILS ABSOLUTE 0.14 10/3/uL (0.0-0.53); HEMATOCRIT 39.6 % (36.0-48.0); HEMOGLOBIN 13.4 g/dL (12.0-16.0); IMMATURE GRANULOCYTES 0.1 %; IMMATURE GRANULOCYTES ABSOLUTE 0.01 10/3/uL (0.0-0.11); LYMPHOCYTES 31.9 %; LYMPHOCYTES ABSOLUTE 2.54 10/3/uL (0.67-4.30); MEAN CORPUS HGB CONC 33.8 g/dL (32.0-36.0); MEAN CORPUSCULAR HEMOGLOB 32.3 pg (26.0-34.0); MEAN CORPUSCULAR VOLUME 95.4 fL (80-100); MONOCYTES 7.4 %; MONOCYTES ABSOLUTE 0.59 10/3/uL (0.21-1.20); NEUTROPHILS 58.5 %; NEUTROPHILS ABSOLUTE 4.66 10/3/uL (2.02-8.40); PLATELET COUNT 216 10/3/uL (150-400); RBC DISTRIBUTION WIDTH 12.6 % (12.0-16.0); RED CELL COUNT 4.15 10/6/uL (4.0-5.6)
[2017-03-08 05:05] LABS: MANUAL DIFF NO %
[2017-03-08 05:17] LABS: CALCIUM, SERUM 8.9 MG/DL (8.5-10.4); CHLORIDE, SERUM 107 MMOL/L (96-112); CHOL/HDL RATIO(NOT ORDER) 2.1 (0-5); CHOLESTEROL 130 MG/DL (< 200); CO2 (CARBON DIOXIDE) 29 MMOL/L (24-34); GFR AFRICAN AMERICAN 112 ML/MIN (>=60); GFR NON AFRICAN AMERICAN 97 ML/MIN (>=60); GLUCOSE, SERUM 103 MG/DL (60-99); HDL CHOLESTEROL 62 MG/DL (> 49); LDL CHOLESTEROL 55 MG/DL (< 130); NON-HDL CHOLESTEROL 68 MG/DL (< 160); POTASSIUM, SERUM 4.1 MMOL/L (3.5-5.3); SODIUM, SERUM 143 MMOL/L (135-148); TRIGLYCERIDE 69 MG/DL (< 150)
[2017-03-08 05:24] LABS: BUN (BLOOD UREA NITROGEN) 13 MG/DL (6-23)
[2017-03-10 06:02] LABS: BASOPHILS 0.3 %; BASOPHILS ABSOLUTE 0.02 10/3/uL (0.0-0.16); EOSINOPHILS 3.1 %; EOSINOPHILS ABSOLUTE 0.24 10/3/uL (0.0-0.53); HEMATOCRIT 38.5 % (36.0-48.0); HEMOGLOBIN 13.1 g/dL (12.0-16.0); IMMATURE GRANULOCYTES 0.3 %; IMMATURE GRANULOCYTES ABSOLUTE 0.02 10/3/uL (0.0-0.11); LYMPHOCYTES 26.6 %; LYMPHOCYTES ABSOLUTE 2.07 10/3/uL (0.67-4.30); MEAN CORPUSCULAR HEMOGLOB 32.4 pg (26.0-34.0); MEAN CORPUSCULAR VOLUME 95.3 fL (80-100); MEAN PLATELET VOLUME 9.9 fL (9.2-13.0); MONOCYTES 10.5 %; MONOCYTES ABSOLUTE 0.82 10/3/uL (0.21-1.20); NEUTROPHILS 59.2 %; NEUTROPHILS ABSOLUTE 4.61 10/3/uL (2.02-8.40); PLATELET COUNT 198 10/3/uL (150-400); RBC DISTRIBUTION WIDTH 12.6 % (12.0-16.0); RED CELL COUNT 4.04 10/6/uL (4.0-5.6); WHITE BLOOD CELLS 7.8 10/3/uL (4.5-10.5)
[2017-03-10 06:04] LABS: INTERNATIONAL NORMAL RATI 1.1 UNITS (-); PROTIME (NOT ORD) 13.6 SEC (12.0-14.5)
[2017-03-10 06:06] LABS: MANUAL DIFF NO %
[2017-03-10 06:17] LABS: % IRON SAT 8 % (20-50); A/G RATIO 0.9 (0.7-1.9); ALBUMIN 3.3 G/DL (3.5-5.0); ALKALINE PHOSPHATASE 88 U/L (45-117); BUN (BLOOD UREA NITROGEN) 11 MG/DL (6-23); CALCIUM, SERUM 9.4 MG/DL (8.5-10.4); CHLORIDE, SERUM 103 MMOL/L (96-112); CO2 (CARBON DIOXIDE) 31 MMOL/L (24-34); CREATININE 0.77 MG/DL (0.55-1.02); GFR AFRICAN AMERICAN 100 ML/MIN (>=60); GFR NON AFRICAN AMERICAN 86 ML/MIN (>=60); GLOBULIN 3.8 G/DL (2.5-4.1); GLUCOSE, SERUM 109 MG/DL (60-99); IRON BINDING CAPACITY 342 MCG/DL (225-410); IRON, SERUM 27 MCG/DL (35-150); POTASSIUM, SERUM 3.7 MMOL/L (3.5-5.3); SGOT(AST) 14 U/L (5-40); SGPT(ALT) 15 U/L (5-65); SODIUM, SERUM 141 MMOL/L (135-148); TOTAL BILIRUBIN 0.4 MG/DL (0-1.2); TOTAL PROTEIN 7.1 G/DL (6.0-8.5)
[2017-03-10 07:51] LABS: ASCORBIC ACID (UR NOT ORDER) NEG (NEG); BILIRUBIN, URINE NEGATIVE (NEG); KETONE, URINE NEGATIVE (NEG); LEUKOCYTE ESTERASE(NOT OR NEG (NEG); WBC (NOT ORDERED) (RFLEX) 3 (0-5)
[2017-03-10 13:51] LABS: BE (BASE EXCESS) -2.9 MEQ/L (0 +/- 2.5); CARBOXYHEMOGLOBIN 0.3 % (0-3); HCO3 (ACTUAL BICARBONATE) 22.2 MEQ/L (23-27); HEMOBLOGIN CONTENT 11.7 G/DL (12-16); INSTRUMENT SERIAL # 11843; METHEMOGLOBIN 0.5 % (0-3); MODE SIMV; O2 CONTENT 16.9 VOL% (18-24); PCO2 (CO2 TENSION) 40 MMHG (35-45); PO2 (O2 TENSION) 316 MMHG (79-93); SAMPLE Arterial; TIDAL VOLUME 500 ML; pH 7.36 (7.37-7.43)
[2017-03-10 14:04] LABS: BASOPHILS 0.2 %; BASOPHILS ABSOLUTE 0.02 10/3/uL (0.0-0.16); EOSINOPHILS 0.4 %; EOSINOPHILS ABSOLUTE 0.05 10/3/uL (0.0-0.53); IMMATURE GRANULOCYTES 0.2 %; IMMATURE GRANULOCYTES ABSOLUTE 0.03 10/3/uL (0.0-0.11); LYMPHOCYTES 6.3 %; LYMPHOCYTES ABSOLUTE 0.83 10/3/uL (0.67-4.30); MEAN CORPUSCULAR HEMOGLOB 32.4 pg (26.0-34.0); MEAN CORPUSCULAR VOLUME 95.3 fL (80-100); MEAN PLATELET VOLUME 9.8 fL (9.2-13.0); MONOCYTES 3.4 %; MONOCYTES ABSOLUTE 0.44 10/3/uL (0.21-1.20); NEUTROPHILS 89.5 %; NEUTROPHILS ABSOLUTE 11.71 10/3/uL (2.02-8.40); RBC DISTRIBUTION WIDTH 12.8 % (12.0-16.0)
[2017-03-10 14:08] LABS: HEMATOCRIT 32.4 % (36.0-48.0); MANUAL DIFF NO %; PLATELET COUNT 87 10/3/uL (150-400); WHITE BLOOD CELLS 13.1 10/3/uL (4.5-10.5)
[2017-03-10 14:16] LABS: PARTIAL THROMBO TIME 37.3 SEC (22.5-37.2); PROTIME (NOT ORD) 22.3 SEC (12.0-14.5)
[2017-03-10 14:19] LABS: BUN (BLOOD UREA NITROGEN) 10 MG/DL (6-23); CALCIUM, SERUM 10.4 MG/DL (8.5-10.4); CHLORIDE, SERUM 113 MMOL/L (96-112); CO2 (CARBON DIOXIDE) 24 MMOL/L (24-34); CREATININE 0.84 MG/DL (0.55-1.02); GFR AFRICAN AMERICAN 90 ML/MIN (>=60); GFR NON AFRICAN AMERICAN 78 ML/MIN (>=60); GLUCOSE, SERUM 87 MG/DL (60-99); POTASSIUM, SERUM 3.7 MMOL/L (3.5-5.3); SODIUM, SERUM 146 MMOL/L (135-148)
[2017-03-10 20:18] LABS: HEMATOCRIT 26.7 % (36.0-48.0); HEMOGLOBIN 9.2 g/dL (12.0-16.0)
[2017-03-10 21:15] LABS: POTASSIUM, SERUM 4.5 MMOL/L (3.5-5.3)
[2017-03-10 22:52] LABS: BE (BASE EXCESS) -2.2 MEQ/L (0 +/- 2.5); CARBOXYHEMOGLOBIN 0.3 % (0-3); DEVICE NC; HCO3 (ACTUAL BICARBONATE) 24.2 MEQ/L (23-27); HEMOBLOGIN CONTENT 9.5 G/DL (12-16); INSTRUMENT SERIAL # 11843; METHEMOGLOBIN 0.5 % (0-3); O2 CONTENT 13.3 VOL% (18-24); OPERATOR ID 13744; PCO2 (CO2 TENSION) 49 MMHG (35-45); PO2 (O2 TENSION) 161 MMHG (79-93); SAMPLE Arterial; pH 7.31 (7.37-7.43)
[2017-03-11 03:36] LABS: BASOPHILS 0 %; EOSINOPHILS 0 %; HEMATOCRIT 24.9 % (36.0-48.0); HEMOGLOBIN 8.6 g/dL (12.0-16.0); IMMATURE GRANULOCYTES 0.3 %; IMMATURE GRANULOCYTES ABSOLUTE 0.03 10/3/uL (0.0-0.11); LYMPHOCYTES 3.9 %; LYMPHOCYTES ABSOLUTE 0.44 10/3/uL (0.67-4.30); MEAN CORPUS HGB CONC 34.5 g/dL (32.0-36.0); MEAN CORPUSCULAR HEMOGLOB 32.8 pg (26.0-34.0); MONOCYTES 4.4 %; MONOCYTES ABSOLUTE 0.49 10/3/uL (0.21-1.20); NEUTROPHILS 91.4 %; NEUTROPHILS ABSOLUTE 10.29 10/3/uL (2.02-8.40); PLATELET COUNT 94 10/3/uL (150-400); WHITE BLOOD CELLS 11.3 10/3/uL (4.5-10.5)
[2017-03-11 03:37] LABS: MANUAL DIFF NO %; RED CELL COUNT 2.62 10/6/uL (4.0-5.6)
[2017-03-11 03:51] LABS: BUN (BLOOD UREA NITROGEN) 16 MG/DL (6-23); CALCIUM, SERUM 8.7 MG/DL (8.5-10.4); CHLORIDE, SERUM 114 MMOL/L (96-112); CO2 (CARBON DIOXIDE) 27 MMOL/L (24-34); CREATININE 0.68 MG/DL (0.55-1.02); GFR AFRICAN AMERICAN 113 ML/MIN (>=60); GFR NON AFRICAN AMERICAN 98 ML/MIN (>=60); GLUCOSE, SERUM 96 MG/DL (60-99); POTASSIUM, SERUM 4.1 MMOL/L (3.5-5.3); SODIUM, SERUM 149 MMOL/L (135-148)
[2017-03-11 03:52] LABS: INTERNATIONAL NORMAL RATI 1.4 UNITS (-)
[2017-03-11 03:58] LABS: PROTIME (NOT ORD) 17.3 SEC (12.0-14.5)
[2017-03-11 17:33] LABS: HEMATOCRIT 24.6 % (36.0-48.0); HEMOGLOBIN 8.1 g/dL (12.0-16.0)
[2017-03-11 17:40] LABS: POTASSIUM, SERUM 3.9 MMOL/L (3.5-5.3)
[2017-03-12 03:16] LABS: BASOPHILS 0 %; EOSINOPHILS 0 %; HEMATOCRIT 25.3 % (36.0-48.0); HEMOGLOBIN 8.4 g/dL (12.0-16.0); IMMATURE GRANULOCYTES 0.2 %; IMMATURE GRANULOCYTES ABSOLUTE 0.03 10/3/uL (0.0-0.11); LYMPHOCYTES 7.8 %; LYMPHOCYTES ABSOLUTE 1.12 10/3/uL (0.67-4.30); MEAN CORPUS HGB CONC 33.2 g/dL (32.0-36.0); MEAN CORPUSCULAR HEMOGLOB 32.3 pg (26.0-34.0); MEAN CORPUSCULAR VOLUME 97.3 fL (80-100); MEAN PLATELET VOLUME 10.6 fL (9.2-13.0); MONOCYTES 9.4 %; MONOCYTES ABSOLUTE 1.35 10/3/uL (0.21-1.20); NEUTROPHILS 82.6 %; NEUTROPHILS ABSOLUTE 11.84 10/3/uL (2.02-8.40); RBC DISTRIBUTION WIDTH 13.5 % (12.0-16.0); WHITE BLOOD CELLS 14.3 10/3/uL (4.5-10.5)
[2017-03-12 03:17] LABS: MANUAL DIFF NO %; PLATELET COUNT 124 10/3/uL (150-400)
[2017-03-12 03:29] LABS: BUN (BLOOD UREA NITROGEN) 23 MG/DL (6-23); CALCIUM, SERUM 9.1 MG/DL (8.5-10.4); CHLORIDE, SERUM 105 MMOL/L (96-112); CO2 (CARBON DIOXIDE) 33 MMOL/L (24-34); CREATININE 0.74 MG/DL (0.55-1.02); GFR AFRICAN AMERICAN 105 ML/MIN (>=60); GFR NON AFRICAN AMERICAN 91 ML/MIN (>=60); GLUCOSE, SERUM 157 MG/DL (60-99); POTASSIUM, SERUM 4.9 MMOL/L (3.5-5.3); SODIUM, SERUM 143 MMOL/L (135-148)
[2017-03-13 06:11] LABS: CALCIUM, SERUM 9.6 MG/DL (8.5-10.4); CHLORIDE, SERUM 99 MMOL/L (96-112); CREATININE 0.73 MG/DL (0.55-1.02); GFR AFRICAN AMERICAN 107 ML/MIN (>=60); GFR NON AFRICAN AMERICAN 92 ML/MIN (>=60); SODIUM, SERUM 141 MMOL/L (135-148)
[2017-03-13 06:12] LABS: BUN (BLOOD UREA NITROGEN) 16 MG/DL (6-23); CO2 (CARBON DIOXIDE) 38 MMOL/L (24-34); GLUCOSE, SERUM 124 MG/DL (60-99); POTASSIUM, SERUM 3.8 MMOL/L (3.5-5.3)
[2017-03-13 06:16] LABS: INTERNATIONAL NORMAL RATI 1.2 UNITS (-); PROTIME (NOT ORD) 15.5 SEC (12.0-14.5)
[2017-03-13 06:25] LABS: BASOPHILS 0.1 %; BASOPHILS ABSOLUTE 0.01 10/3/uL (0.0-0.16); EOSINOPHILS 0.1 %; EOSINOPHILS ABSOLUTE 0.01 10/3/uL (0.0-0.53); HEMATOCRIT 26.8 % (36.0-48.0); HEMOGLOBIN 8.8 g/dL (12.0-16.0); IMMATURE GRANULOCYTES 0.2 %; IMMATURE GRANULOCYTES ABSOLUTE 0.02 10/3/uL (0.0-0.11); LYMPHOCYTES 13.1 %; LYMPHOCYTES ABSOLUTE 1.48 10/3/uL (0.67-4.30); MANUAL DIFF NO %; MEAN CORPUS HGB CONC 32.8 g/dL (32.0-36.0); MEAN CORPUSCULAR HEMOGLOB 32.2 pg (26.0-34.0); MEAN CORPUSCULAR VOLUME 98.2 fL (80-100); MEAN PLATELET VOLUME 10.3 fL (9.2-13.0); MONOCYTES 9.4 %; MONOCYTES ABSOLUTE 1.06 10/3/uL (0.21-1.20); NEUTROPHILS 77.1 %; NEUTROPHILS ABSOLUTE 8.68 10/3/uL (2.02-8.40); PLATELET COUNT 142 10/3/uL (150-400); RBC DISTRIBUTION WIDTH 13.1 % (12.0-16.0); RED CELL COUNT 2.73 10/6/uL (4.0-5.6); WHITE BLOOD CELLS 11.3 10/3/uL (4.5-10.5)
[2017-03-14 05:53] LABS: INTERNATIONAL NORMAL RATI 1.2 UNITS (-); PROTIME (NOT ORD) 14.9 SEC (12.0-14.5)
[2017-03-14] MEDS ORDERED: CORDARONE PO (09:25)
[2017-03-14] MEDS ORDERED: LOP25 PO (09:26)
[2017-03-14] MEDS ORDERED: SENTAB PO (09:26)
[2017-03-14] MEDS ORDERED: ZINC220C PO (09:27)
[2017-03-14] MEDS ORDERED: VITC500 PO (09:27)
[2017-03-14] MEDS ORDERED: C25 PO (09:38)
== END 2017-03-14 13:08 | disposition home or self-care (01) | DRG 216 ==
LOC: CORLMH 06:20 → SSU1 06:30 → 6NO 03-08 15:05 → SDC/OF 03-10 06:26 → CVICU 03-10 12:48 → 5NO 03-12 10:23
PROVIDERS: Internal Medicine; Nurse Practitioner Family; Thoracic Surgery (Cardiothoracic Vascular Surgery)
PROC: 4A023N8 Measurement of Cardiac Sampling and Pressure, Bilateral, Percutaneous Approach (ICD-10-PCS; principal; 2017-03-07)
PROC: B2111ZZ Fluoroscopy of Multiple Coronary Arteries using Low Osmolar Contrast (ICD-10-PCS; 2017-03-07)
PROC: B2151ZZ Fluoroscopy of Left Heart using Low Osmolar Contrast (ICD-10-PCS; 2017-03-07)
PROC: 0DB68ZX Excision of Stomach, Via Natural or Artificial Opening Endoscopic, Diagnostic (ICD-10-PCS; 2017-03-09)
PROC: 0DB38ZX Excision of Lower Esophagus, Via Natural or Artificial Opening Endoscopic, Diagnostic (ICD-10-PCS; 2017-03-09)
PROC: 02100Z9 Bypass Coronary Artery, One Artery from Left Internal Mammary, Open Approach (ICD-10-PCS; 2017-03-10)
PROC: 021109W Bypass Coronary Artery, Two Arteries from Aorta with Autologous Venous Tissue, Open Approach (ICD-10-PCS; 2017-03-10)
PROC: 06BP0ZZ Excision of Right Saphenous Vein, Open Approach (ICD-10-PCS; 2017-03-10)
PROC: 5A1221Z Performance of Cardiac Output, Continuous (ICD-10-PCS; 2017-03-10)
PROC: 02RF08Z Replacement of Aortic Valve with Zooplastic Tissue, Open Approach (ICD-10-PCS; 2017-03-10 07:30)
DX: I35.0 Nonrheumatic aortic (valve) stenosis (principal); Q39.3 Congenital stenosis and stricture of esophagus; R13.10 Dysphagia, unspecified; I25.110 Atherosclerotic heart disease of native coronary artery with unstable angina pectoris; I10 Essential (primary) hypertension; E11.9 Type 2 diabetes mellitus without complications; E78.00 Pure hypercholesterolemia, unspecified; F17.210 Nicotine dependence, cigarettes, uncomplicated; G47.33 Obstructive sleep apnea (adult) (pediatric); Z79.82 Long term (current) use of aspirin; K21.0 Gastro-esophageal reflux disease with esophagitis; E78.5 Hyperlipidemia, unspecified; I25.5 Ischemic cardiomyopathy
CPT/HCPCS: 31720; 36415; 71010; 71020; 71250; 80048; 80053; 80061; 81001; 82330; 82803; 82805; 82947; 82962; 83036; 83540; 83550; 83735; 84132; 84295; 85014; 85018; 85025; 85347; 85610; 85730; 86850; 86900; 86901; 86920; 87641; 88305; 88311; 93005; 93460; 93567; 94003; 94640; 94660; 94770; 99152; 99153; A9270-GY; C1713; C1751; C1769; C1894; C9113; J0690; J1644; J2150; J2250; J2370; J2405; J2440; J2720; J2765; J2795; J2930; J3010; J3370; J3475; J3480; P9045; P9047; Q9967